=== PATIENT | female | born 1940 | race Caucasian/White ===

== ENCOUNTER 2017-11-11 13:35 | Inpatient (IN) | payer OTHER, MEDICARE ==
[2017-11-11] MEDS: morphine 4 MG/ML VIAL IV (16:34)
[2017-11-11] MEDS: ONDANSETRON 4 MG INJ IV (16:34)
[2017-11-11 16:41] LABS: ADD MAN DIFF? NO
[2017-11-11 16:46] LABS: BASOPHIL # 0.1 10^3/ul (0.0-0.1); BASOPHILS % 1.3 % (0.0-2.0); EOSINOPHILS # 0.1 10^3/ul (0.0-0.5); EOSINOPHILS % 2.8 % (0.0-7.0); HEMATOCRIT 28.2 % (37.0-47.0); HEMOGLOBIN 8.6 g/dl (12.0-16.0); LYMPHOCYTES # 1.1 10^3/ul (0.8-2.9); LYMPHOCYTES % 24.5 % (15.0-51.0); MEAN CORPUSCULAR HEMOGLOBIN 28.2 pg (29.0-33.0); MEAN CORPUSCULAR HGB CONC 30.5 g/dl (32.0-37.0); MEAN CORPUSCULAR VOLUME 92.5 fl (82.0-101.0); MEAN PLATELET VOLUME 9.7 fl (7.4-10.4); MONOCYTE # 0.5 10^3/ul (0.3-0.9); MONOCYTES % 11.4 % (0.0-11.0); NEUTROPHIL # 2.8 10^3/ul (1.6-7.5); NEUTROPHILS % 59.8 % (39.0-77.0); PLATELET COUNT 152 10^3/UL (140-415); RED BLOOD COUNT 3.05 10^6/ul (4.20-5.40); RED CELL DISTRIBUTION WIDTH 15.3 % (11.5-14.5)
[2017-11-11 16:46] LABS: WHITE BLOOD COUNT 4.7 10^3/ul (4.8-10.8)
[2017-11-11] MEDS: ONDANSETRON 4 MG INJ IM (16:56)
[2017-11-11] MEDS: morphine 4 MG/ML VIAL IM (16:56)
[2017-11-11 17:00] LABS: ALANINE AMINOTRANSFERASE 38 IU/L (13-69); ALBUMIN 3.1 g/dl (3.3-4.9); ALBUMIN/GLOBULIN RATIO 0.83; ALKALINE PHOSPHATASE 109 IU/L (42-121); ANION GAP 13 (8-16); ASPARTATE AMINO TRANSFERASE 55 IU/L (15-46); BILIRUBIN,INDIRECT 1.3 mg/dl (0-1.1); BILIRUBIN,TOTAL 1.3 mg/dl (0.2-1.3); BLOOD UREA NITROGEN 7 mg/dl (7-20); CALCIUM 8.4 mg/dl (8.4-10.2); CARBON DIOXIDE 28 mmol/L (21-31); CHLORIDE 107 mmol/L (97-110); CREATININE 0.59 mg/dl (0.44-1.00); GLUCOSE 137 mg/dl (70-220); LIPASE 285 U/L (23-300); POTASSIUM 3.9 mmol/L (3.5-5.1); SODIUM 144 mmol/L (135-144); TOTAL PROTEIN 6.8 g/dl (6.1-8.1)
[2017-11-11 17:05] LABS: ADD UMIC YES; UR ASCORBIC ACID NEGATIVE (NEGATIVE); UR BACTERIA FEW /HPF (NONE SEEN); UR BILIRUBIN (Dip) NEGATIVE (NEGATIVE); UR BLOOD (Dip) NEGATIVE (NEGATIVE); UR CLARITY SLIGHTLY CLOUDY (CLEAR); UR COLOR AMBER (YELLOW); UR GLUCOSE (Dip) NEGATIVE (NEGATIVE); UR KETONES (Dip) NEGATIVE (NEGATIVE); UR LEUKOCYTE ESTERASE (Dip) 2+ Leu/ul (NEGATIVE); UR MUCUS MODERATE /HPF (NONE SEEN); UR NITRITE (Dip) NEGATIVE (NEGATIVE); UR RBC 3 /HPF (0-5); UR SPECIFIC GRAVITY (Dip) 1.018 (1.003-1.030); UR SQUAMOUS EPITHELIAL CELL MODERATE /HPF (FEW); UR TOTAL PROTEIN (Dip) NEGATIVE (NEGATIVE); UR UROBILINOGEN (Dip) 2+ mg/dL (NEGATIVE); UR WBC 10 /HPF (0-5)
[2017-11-11 17:12] LABS: TROPONIN-I 0.095 ng/ml (0.00-0.12)
[2017-11-11 17:13] LABS: B-TYPE NATRIURETIC PEPTIDE 733 PG/ML (0-450)
[2017-11-11 17:15] LABS: INR 1.64; PARTIAL THROMBOPLASTIN TIME 36.1 Sec (25.0-35.0); PROTIME 19.8 Sec (11.9-14.9); PT RATIO 1.5
[2017-11-11] MEDS: CEFTRIAXONE 1 GM/50 ML (PMX) 50 ML IVPB ×2 (19:58→23:29)
[2017-11-12] MEDS ORDERED: ALBUTEROL/IPRATROPIUM (NEB) 3 ML AMP HHN (02:00)
[2017-11-12] MEDS ORDERED: NACL 0.9% 3 ML SYG IV (02:00)
[2017-11-12] MEDS ORDERED: ACETAMINOPHEN 325 MG TAB PO (02:00)
[2017-11-12] MEDS ORDERED: morphine 2 MG INJ IV (02:00)
[2017-11-12] MEDS: FUROSEMIDE 20 MG INJ IV ×2 (02:33→09:21)
[2017-11-12 05:16] LABS: ADD MAN DIFF? NO
[2017-11-12 05:20] LABS: WHITE BLOOD COUNT 2.4 10^3/ul (4.8-10.8)
[2017-11-12 05:20] LABS: ABNORMAL IP MESSAGE 1; BASOPHILS % 1.2 % (0.0-2.0); EOSINOPHILS # 0.1 10^3/ul (0.0-0.5); EOSINOPHILS % 2.9 % (0.0-7.0); HEMATOCRIT 21.2 % (37.0-47.0); LYMPHOCYTES # 0.6 10^3/ul (0.8-2.9); LYMPHOCYTES % 24.7 % (15.0-51.0); MEAN CORPUSCULAR HEMOGLOBIN 28.8 pg (29.0-33.0); MEAN CORPUSCULAR HGB CONC 31.6 g/dl (32.0-37.0); MEAN PLATELET VOLUME 10.8 fl (7.4-10.4); MONOCYTE # 0.3 10^3/ul (0.3-0.9); MONOCYTES % 11.9 % (0.0-11.0); NEUTROPHIL # 1.4 10^3/ul (1.6-7.5); NEUTROPHILS % 58.9 % (39.0-77.0); PLATELET COUNT 116 10^3/UL (140-415); RED BLOOD COUNT 2.33 10^6/ul (4.20-5.40); RED CELL DISTRIBUTION WIDTH 15.7 % (11.5-14.5)
[2017-11-12 06:10] LABS: ALANINE AMINOTRANSFERASE 39 IU/L (13-69); ALBUMIN 2.1 g/dl (3.3-4.9); ALBUMIN/GLOBULIN RATIO 0.65; ALKALINE PHOSPHATASE 82 IU/L (42-121); ASPARTATE AMINO TRANSFERASE 39 IU/L (15-46); BILIRUBIN,INDIRECT 1.4 mg/dl (0-1.1); BILIRUBIN,TOTAL 1.4 mg/dl (0.2-1.3); BLOOD UREA NITROGEN 9 mg/dl (7-20); CALCIUM 7.5 mg/dl (8.4-10.2); CARBON DIOXIDE 29 mmol/L (21-31); CHLORIDE 106 mmol/L (97-110); GLUCOSE 99 mg/dl (70-220); SODIUM 143 mmol/L (135-144); TOTAL PROTEIN 5.3 g/dl (6.1-8.1)
[2017-11-12 06:21] LABS: HEMOGLOBIN 6.7 g/dl (12.0-16.0); POSITIVE DIFF @See below
[2017-11-12 06:22] LABS: PATH REVIEW? YES
[2017-11-12 07:59] LABS: ANION GAP 11 (8-16)
[2017-11-12 08:02] LABS: POTASSIUM 3.3 mmol/L (3.5-5.1)
[2017-11-12] MEDS ORDERED: PANTOPRAZOLE (EC) 40 MG TAB PO (09:00)
[2017-11-12] MEDS: GABAPENTIN 100 MG CAP PO ×2 (09:21→20:07)
[2017-11-12] MEDS: FOLIC ACID 1 MG TAB PO (09:21)
[2017-11-12] MEDS: SPIRONOLACTONE 50 MG TAB PO (09:21)
[2017-11-12] MEDS: LIDOCAINE 1% (MDV) 10 ML INJ (14:07)
[2017-11-12 14:43] LABS: IMMEDIATE SPIN CROSSMATCH 1 2
[2017-11-12] MEDS: POTASSIUM CHLORIDE (SR) 20 MEQ TAB PO (15:26)
[2017-11-12] MEDS: PANTOPRAZOLE 40 MG INJ IV (17:47)
[2017-11-12] MEDS: CEFTRIAXONE 1 GM/50 ML (PMX) 50 ML IVPB (20:06)
[2017-11-12] MEDS: SOLIFENACIN 5 MG TAB PO (20:07)
[2017-11-13] MEDS: PANTOPRAZOLE 40 MG INJ IV ×2 (05:44→18:48)
[2017-11-13 05:57] LABS: ADD MAN DIFF? NO
[2017-11-13 06:01] LABS: WHITE BLOOD COUNT 3.4 10^3/ul (4.8-10.8)
[2017-11-13 06:01] LABS: BASOPHIL # 0.1 10^3/ul (0.0-0.1); BASOPHILS % 1.7 % (0.0-2.0); EOSINOPHILS # 0.2 10^3/ul (0.0-0.5); EOSINOPHILS % 6.1 % (0.0-7.0); HEMATOCRIT 29.4 % (37.0-47.0); HEMOGLOBIN 9.4 g/dl (12.0-16.0); LYMPHOCYTES % 28.2 % (15.0-51.0); MEAN CORPUSCULAR HEMOGLOBIN 28.6 pg (29.0-33.0); MEAN CORPUSCULAR VOLUME 89.4 fl (82.0-101.0); MEAN PLATELET VOLUME 10.5 fl (7.4-10.4); MONOCYTE # 0.4 10^3/ul (0.3-0.9); MONOCYTES % 12.5 % (0.0-11.0); NEUTROPHIL # 1.8 10^3/ul (1.6-7.5); NEUTROPHILS % 51.2 % (39.0-77.0); PLATELET COUNT 120 10^3/UL (140-415); RED BLOOD COUNT 3.29 10^6/ul (4.20-5.40); RED CELL DISTRIBUTION WIDTH 16.2 % (11.5-14.5)
[2017-11-13 07:18] LABS: HEMOGLOBIN A1C 4.9 % (0-5.9)
[2017-11-13 07:45] LABS: ANION GAP 10 (8-16); BLOOD UREA NITROGEN 11 mg/dl (7-20); CALCIUM 7.8 mg/dl (8.4-10.2); CARBON DIOXIDE 27 mmol/L (21-31); CHLORIDE 108 mmol/L (97-110); CREATININE 0.69 mg/dl (0.44-1.00); GLUCOSE 104 mg/dl (70-220); MAGNESIUM 1.3 mg/dl (1.7-2.5); PHOSPHORUS 2.7 mg/dl (2.5-4.9); POTASSIUM 3.7 mmol/L (3.5-5.1); SODIUM 141 mmol/L (135-144)
[2017-11-13] MEDS: FOLIC ACID 1 MG TAB PO (09:07)
[2017-11-13] MEDS: GABAPENTIN 100 MG CAP PO ×2 (09:07→20:45)
[2017-11-13] MEDS: SPIRONOLACTONE 50 MG TAB PO (09:07)
[2017-11-13] MEDS: FUROSEMIDE 20 MG INJ IV (09:09)
[2017-11-13 14:19] LABS: PATH REVIEW CH
[2017-11-13] MEDS: MAGNESIUM SULFATE 4 GM/100 ML 100 ML IVPB (15:55)
[2017-11-13] MEDS: CEFTRIAXONE 1 GM/50 ML (PMX) 50 ML IVPB (20:44)
[2017-11-13] MEDS: SOLIFENACIN 5 MG TAB PO (20:45)
[2017-11-14] MEDS: ZOLPIDEM 5 MG TAB PO (00:49)
[2017-11-14] MEDS: PANTOPRAZOLE 40 MG INJ IV ×2 (05:35→17:45)
[2017-11-14 06:09] LABS: ADD MAN DIFF? NO
[2017-11-14 06:11] LABS: BASOPHIL # 0.1 10^3/ul (0.0-0.1); BASOPHILS % 1.7 % (0.0-2.0); EOSINOPHILS # 0.3 10^3/ul (0.0-0.5); EOSINOPHILS % 7.8 % (0.0-7.0); HEMATOCRIT 29.6 % (37.0-47.0); HEMOGLOBIN 9.4 g/dl (12.0-16.0); LYMPHOCYTES # 1.1 10^3/ul (0.8-2.9); LYMPHOCYTES % 25.8 % (15.0-51.0); MEAN CORPUSCULAR HEMOGLOBIN 27.7 pg (29.0-33.0); MEAN CORPUSCULAR HGB CONC 31.8 g/dl (32.0-37.0); MEAN CORPUSCULAR VOLUME 87.3 fl (82.0-101.0); MEAN PLATELET VOLUME 10.8 fl (7.4-10.4); MONOCYTE # 0.5 10^3/ul (0.3-0.9); MONOCYTES % 11.2 % (0.0-11.0); NEUTROPHIL # 2.2 10^3/ul (1.6-7.5); NEUTROPHILS % 53.3 % (39.0-77.0); PLATELET COUNT 120 10^3/UL (140-415); RED BLOOD COUNT 3.39 10^6/ul (4.20-5.40); RED CELL DISTRIBUTION WIDTH 16.2 % (11.5-14.5)
[2017-11-14 06:11] LABS: WHITE BLOOD COUNT 4.1 10^3/ul (4.8-10.8)
[2017-11-14 06:48] LABS: ANION GAP 10 (8-16); BLOOD UREA NITROGEN 10 mg/dl (7-20); CALCIUM 7.7 mg/dl (8.4-10.2); CARBON DIOXIDE 28 mmol/L (21-31); CHLORIDE 104 mmol/L (97-110); CREATININE 0.65 mg/dl (0.44-1.00); GLUCOSE 88 mg/dl (70-220); MAGNESIUM 1.7 mg/dl (1.7-2.5); PHOSPHORUS 3.2 mg/dl (2.5-4.9); POTASSIUM 3.5 mmol/L (3.5-5.1); SODIUM 138 mmol/L (135-144)
[2017-11-14] MEDS: GABAPENTIN 100 MG CAP PO ×2 (09:00→20:31)
[2017-11-14] MEDS: FOLIC ACID 1 MG TAB PO (09:00)
[2017-11-14] MEDS: SPIRONOLACTONE 50 MG TAB PO (09:00)
[2017-11-14] MEDS: FUROSEMIDE 20 MG INJ IV (09:01)
[2017-11-14 09:49] LABS: OCCULT BLOOD STOOL NEGATIVE (NEGATIVE)
[2017-11-14 11:54] LABS: AMMONIA 50 umol/l (9-30)
[2017-11-14] MEDS: ONDANSETRON 4 MG INJ IV (12:37)
[2017-11-14] MEDS: LACTULOSE 30ML CUP PO ×2 (12:37→17:45)
[2017-11-14] MEDS: SOLIFENACIN 5 MG TAB PO (20:31)
[2017-11-14] MEDS: CEFTRIAXONE 1 GM/50 ML (PMX) 50 ML IVPB (20:31)
[2017-11-15] MEDS: LACTULOSE 30ML CUP PO ×3 (00:25→12:10)
[2017-11-15 05:39] LABS: ADD MAN DIFF? NO
[2017-11-15] MEDS: PANTOPRAZOLE 40 MG INJ IV (05:40)
[2017-11-15 05:45] LABS: WHITE BLOOD COUNT 4.4 10^3/ul (4.8-10.8)
[2017-11-15 05:45] LABS: BASOPHIL # 0.1 10^3/ul (0.0-0.1); BASOPHILS % 1.6 % (0.0-2.0); EOSINOPHILS # 0.3 10^3/ul (0.0-0.5); EOSINOPHILS % 7.6 % (0.0-7.0); HEMATOCRIT 31.1 % (37.0-47.0); HEMOGLOBIN 9.9 g/dl (12.0-16.0); LYMPHOCYTES # 1.1 10^3/ul (0.8-2.9); LYMPHOCYTES % 26.2 % (15.0-51.0); MEAN CORPUSCULAR HEMOGLOBIN 28.3 pg (29.0-33.0); MEAN CORPUSCULAR HGB CONC 31.8 g/dl (32.0-37.0); MEAN CORPUSCULAR VOLUME 88.9 fl (82.0-101.0); MEAN PLATELET VOLUME 10.7 fl (7.4-10.4); MONOCYTE # 0.5 10^3/ul (0.3-0.9); MONOCYTES % 11.5 % (0.0-11.0); NEUTROPHIL # 2.3 10^3/ul (1.6-7.5); NEUTROPHILS % 52.6 % (39.0-77.0); PLATELET COUNT 122 10^3/UL (140-415); RED CELL DISTRIBUTION WIDTH 16.4 % (11.5-14.5)
[2017-11-15 06:03] LABS: ANION GAP 11 (8-16); BLOOD UREA NITROGEN 10 mg/dl (7-20); CALCIUM 7.7 mg/dl (8.4-10.2); CARBON DIOXIDE 26 mmol/L (21-31); CHLORIDE 106 mmol/L (97-110); CREATININE 0.67 mg/dl (0.44-1.00); GLUCOSE 77 mg/dl (70-220); POTASSIUM 3.7 mmol/L (3.5-5.1); SODIUM 139 mmol/L (135-144)
[2017-11-15 06:04] LABS: AMMONIA 35 umol/l (9-30)
[2017-11-15 06:14] LABS: MAGNESIUM 1.3 mg/dl (1.7-2.5)
[2017-11-15] MEDS: GABAPENTIN 100 MG CAP PO (09:39)
[2017-11-15] MEDS: FOLIC ACID 1 MG TAB PO (09:39)
[2017-11-15] MEDS: SPIRONOLACTONE 50 MG TAB PO (09:39)
[2017-11-15] MEDS: FUROSEMIDE 20 MG INJ IV (09:40)
[2017-11-15] MEDS: MAGNESIUM SULFATE 4 GM/100 ML 100 ML IVPB (11:53)
[2017-11-15] MEDS ORDERED: MAGNESIUM OXIDE 400 MG TAB PO (21:00)
== END 2017-11-15 16:50 | disposition home health service (06) | DRG 433 ==
LOC: E/R 11-12 00:10 → MS2 23:01 → E/R 13:35 → MS2 11-12 01:05
PROC: 0W9G3ZX Drainage of Peritoneal Cavity, Percutaneous Approach, Diagnostic (ICD-10-PCS; principal; 2017-11-12)
DX: K70.40 Alcoholic hepatic failure without coma (principal); N39.0 Urinary tract infection, site not specified; D61.818 Other pancytopenia; K70.31 Alcoholic cirrhosis of liver with ascites; I10 Essential (primary) hypertension; M16.12 Unilateral primary osteoarthritis, left hip; M17.12 Unilateral primary osteoarthritis, left knee; F10.20 Alcohol dependence, uncomplicated
CPT/HCPCS: 36415; 36430; 71045; 73510; 80048; 80053; 81001; 82042; 82140; 82270; 83036; 83690; 83735; 83880; 84100; 84484; 85025; 85610; 85730; 86850; 86900; 86901; 86920; 87070; 87086; 87102; 87116; 88104; 88305; 93005; 96374; 96375; 97116; 97161; 97530; 99285-25

== ENCOUNTER 2018-08-28 11:15 | Emergency (ER) | payer OTHER ==
[2018-08-28] MEDS: HYDROCODONE/APAP (5/325) TAB PO (12:42)
[2018-08-28] MEDS: IBUPROFEN 200 MG TAB PO (12:43)
== END 2018-08-28 14:05 | disposition home or self-care (01) ==
LOC: FTE 11:15
DX: S42.351A Displaced comminuted fracture of shaft of humerus, right arm, initial encounter for closed fracture (principal); S12.9XXA Fracture of neck, unspecified, initial encounter; I10 Essential (primary) hypertension; W18.39XA Other fall on same level, initial encounter; Y92.9 Unspecified place or not applicable
CPT/HCPCS: 73000; 73030-RT; 73060-RT; 99283-25